=== PATIENT | male | born 1945 | race Caucasian/White ===

== ENCOUNTER → 2016-08-21 | Day surgery (SDC) | payer MEDICARE ==
[~2016-08-21] VITALS: Ht 182.9 cm; Wt 107.0 kg
[~2016-08-21] MED LIST: ACTO15TA11 PO; ALBI1INJ2 SQ; AMLO10TA2 PO; ASPI81CH CHEW; CLON0.1T PO; CO Q150C PO; CYCLOPENTOLATE HCL 1% OPHT SOLN 2 ML BTL ONE; EXENINJ SQ; FENO50TA PO; FLURBIPROFEN 0.03% OPHT SOLN 2.5 ML BTL ONE; GLIP5TAB8 PO; HYALURONIDASE/LIDOCAINE/EPINEPHRINE/BUPIVACAINE 6 ML SYR ONE; IBUP200C PO; LIDOCAINE HCL 1% PF 30 ML VIAL INFIL ONE; LIPI10TA PO; MAXZTAB PO; METF1000 PO; METO50TA PO; MIRA33504 PO; PHENYLEPHRINE HCL 10% OPTH SOLN 5 ML BTL ONE; PLAV75TA29 PO; PROPARACAINE HCL 0.5% OPHT SOLN 15 ML BTL ONE; PROPOFOL 200 MG/20 ML AMP ONE; PYRI100T4 PO; PYRI1TAB5 PO; SODIUM CHLORID 0.9% 500 ML INJ 500 ML ONE; TELM1TAB56 PO; TOBRAMYCIN/DEXAMETHASONE OPTH OINT 3.5 GM TUBE LEFT EYE ONE; TRIA1SPR6 EACH NARE; TROPICAMIDE 1% OPHT SOLN 15 ML BTL ONE; VITA100032 PO; VITA200012 PO; VITA500T49 PO; [UNRECOGNIZED DRUG - CODE] PO
[2016-08-21 08:00] VITALS: BP 189/97; PULSE 70; RESP 16; TEMP 98.9; O2SAT 100
[2016-08-21 08:10] VITALS: PULSE 70
[2016-08-21 08:50] VITALS: PULSE 70
[2016-08-21 09:35] VITALS: TEMP 98.7
[2016-08-21 09:55] VITALS: BP 168/79; PULSE 75; RESP 16; O2SAT 98
--- NOTE | 2016-08-25 10:26 | MP ---
cc: CHRISTOPHER ONEIL M.D. DATE OF SURGERY: 08/21/2016 [facility] [id number] PREOPERATIVE DIAGNOSIS Visually significant cataract, left eye. POSTOPERATIVE DIAGNOSIS Visually significant cataract, left eye. OPERATION Phacoemulsification with posterior chamber lens implantation, left eye. SURGEON Christopher Oneil MD ANESTHESIA Retrobulbar with MAC. COMPLICATIONS None. PROCEDURE After informed consent was obtained, the patient was brought into the operative suite and placed on appropriate monitors by the Anesthesia Service. The patient had received a prior retrobulbar injection of local anesthetic by the Anesthesia Service in the holding area. The patient's operative eye was then prepped and draped in the usual sterile fashion. A wire lid speculum was placed. A paracentesis incision was made in the peripheral cornea with a 1 mm shae keratome. The anterior chamber was filled with viscoelastic. The anterior chamber was then entered through a stepped, clear corneal incision using a sharp 3 mm shae keratome. A circular tear capsulorrhexis was then made with a bent needle cystitome. Following hydrodissection of the lens nucleus with balanced saline, phacoemulsification of the nucleus was performed using a modified chopping technique. The remaining cortex was removed with irrigation/aspiration. The prior two procedures were both performed using the handpieces of the [employer] phaco unit. The capsular bag was then filled with viscoelastic. The intraocular lens was then injected into the capsular bag and positioned. The type of intraocular lens and its power can be found elsewhere in this chart. The remaining viscoelastic was then removed from the anterior chamber with the IA handpiece. The anterior chamber was reformed with balanced saline. The wound was then closed securely with stromal hydration. It was found to be watertight to an intraocular pressure of at least 30 mmHg by palpation. A small amount of balanced salt solution was then removed through the paracentesis site and the intraocular pressure at the end of the case was approximately 20 by palpation. All drapes were then removed. TobraDex ointment was then placed in the eye, which was closed beneath a semi-pressure patch dressing. The patient tolerated this procedure well and left the operating room awake and alert. The patient is to follow-up in my office in the morning. MD KELLIE Tenorio/ALISON /9:39 AM /10:24 AM
== END | disposition home or self-care (01) ==
LOC: PHSDC 07:25
PROVIDERS: ATTEND Optometrist Occupational Vision
DX: H25.812 Combined forms of age-related cataract, left eye (principal)
CPT/HCPCS: 00142; 66984; J7040; V2632